=== PATIENT | female | born 1975 | race Caucasian/White ===

== ENCOUNTER 2020-02-13 14:34 | Emergency (ER) | payer OTHER, SELFPAY ==
[2020-02-13] VITALS (8 sets, daily range): BP systolic 122–130; BP diastolic 56–85; PULSE 70–101; RESP 12–19; TEMP 36.6; O2SAT 93–100
--- NOTE | ~2020-02-13 | XR_ITS ---
EXAMINATION: XR chest 1V portable DATE: 02/13/2020 17:41 INDICATION: Midsternal chest pain TECHNIQUE: frontal view of the chest was obtained. COMPARISON: None FINDINGS: Eventration along the right hemidiaphragm. No focal airspace opacities, pulmonary edema, pleural effu carmel or pneumothorax. The cardiomediastinal silhouette is normal. Visualized bones and soft tissues a re unremarkable. IMPRESSION: 1. No acute cardiopulmonary disease. Reviewed, dictated and finalized at location [facility]. [facility]
--- NOTE | 2020-02-13 15:10 | ECG_ITS ---
Measurements Intervals [place] Rate: 99 P: 24 NH: 161 QRS: 28 QRSD: 97 T: 19 QT: 315 QTc: 404 Interpretive Statements SINUS RHYTHM INCOMPLETE RIGHT BUNDLE BRANCH BLOCK BORDERLINE ECG Electronically Signed On 02-13-2020 17:24:02 ASSISTANT ART DIRECTOR by Ari Hurst D.O.
[2020-02-13 15:23] LABS: Basophils Percent Auto 0.3 % (0.2-1.2); Eosinophils Absolute Auto 0.2 K/mm3 (0-0.3); Eosinophils Percent Auto 1.5 % (0-4.4); Hematocrit 42.4 % (37.0-47.0); Hemoglobin 14.4 g/dL (12.0-15.0); Immature Granulocyte Absolute 0.05 K/mm3 (0.00-0.031); Immature Granulocyte Percent A 0.4 % (0-0.5); Lymphocytes Absolute Auto 3.11 K/mm3 (0.9-3.2); Lymphocytes Percent Auto 25.9 % (18.3-44.2); Mean Corpuscular Hemoglobin 28.2 pg (26-34); Mean Corpuscular Volume 83.1 fl (80-100); Mean Platelet Volume 10.4 fl (7.4-10.4); Monocytes Absolute Auto 0.5 K/mm3 (0.1-0.6); Monocytes Percent Auto 4.5 % (2.6-8.5); Neutrophils Absolute Auto 8.1 K/mm3 (1.3-6.7); Neutrophils Percent Auto 67.4 % (45.5-73.1); Platelet Count Result 286 k/mm3 (150-375)
[2020-02-13 15:33] LABS: Anion Gap 10 mmol/L (8-16); Blood Urea Nitrogen 15 mg/dL (7-17); Calcium 10.4 mg/dL (8.4-10.2); Carbon Dioxide 28 mmol/L (22-30); Chloride 100 mmol/L (98-107); Estimated CRCL calculation 83 ml/min; Estimated Glomerular Filt Rate 54; Glucose 111 mg/dL (65-105); Potassium 3.8 mmol/L (3.4-5.0); Sodium 138 mmol/L (137-145)
[2020-02-13 15:34] LABS: Prothrombin Time 13.4 Seconds (11.1-14.7)
[2020-02-13 15:35] LABS: Partial Thromboplastin Time 28.6 SECONDS (22.3-36.8)
[2020-02-13 15:45] LABS: Troponin I < 0.012 ng/mL (0.000-0.034)
--- NOTE | 2020-02-13 17:47 | ED.CHESTPAIN ---
HPI - Chest Pain General Chief Complaint: Chest Pain <ALANA Tamayo Last Filed: 02/13/20 18:50> Stated Complaint: Chest Pain, SOB <ALANA Tamayo Last Filed: 02/13/20 18:50> Time Seen by Provider: 02/13/20 17:28 <ALANA Tamayo Last Filed: 02/13/20 18:50> Source: patient <ALANA Tamayo Last Filed: 02/13/20 18:50> Mode of arrival: ambulatory <ALANA Tamayo Last Filed: 02/13/20 18:50> Limitations: no limitations <ALANA Tamayo Last Filed: 02/13/20 18:50> History of Present Illness HPI narrative: Patient is a 44-year-old female who presents to emergency department for evaluation of chest pain that is midsternal in nature described as a pressure aching pain that was intermittent starting yesterday around 4 PM lasted into the evening tapered down patient was able to sleep woke again in the day with same pain which is now persistent and will not go away has tried Tums and her anxiety medication with no relief denies similar occurrence in the past. Denies recent illness sick exposures contacts presents in no distress does not appear uncomfortable <ALANA Tamayo Last Filed: 02/13/20 18:50> Related Data Home Medications: Home Medications Medication Instructions Recorded Confirmed cariprazine [Vraylar] 6 mg PO DAILY 02/13/20 clonidine HCl 0.1 mg PO ONCE 02/13/20 empagliflozin [Jardiance] 25 mg PO DAILY 02/13/20 liraglutide [Victoza 3-Doroteo] 1.8 mg SUBCUT DAILY 02/13/20 lisinopril 5 mg PO DAILY 02/13/20 oxcarbazepine 300 mg PO BID 02/13/20 trazodone 150 mg PO HS PRN 02/13/20 zolpidem [Ambien] 5 mg PO HS PRN 02/13/20 <ALANA Tamayo Last Filed: 02/13/20 18:50> Allergies/Adverse Reactions: Allergies Allergy/AdvReac Type Severity Reaction Status Date / Time azithromycin Allergy Swelling Verified 02/13/20 17:52 of Lip/Tongue/Throat <Fernando Cortez PA-C - Last Filed: 02/13/20 18:50> Review of Systems Review of Systems: All systems reviewed & are unremarkable except as noted in HPI and below <Fernando Cortez PA-C - Last Filed: 02/13/20 18:50> [facility] Past Medical History Medical History: Medical History Bipolar disorder Diabetes mellitus <Fernando Cortez PA-C - Last Filed: 02/13/20 18:50> Social History Social History: Social History (Updated 02/13/20 @ 17:49 by Fernando Cortez PA-C) Smoking status: Never smoker Gender identity (if verbalized by the patient): Female <Fernando Cortez PA-C - Last Filed: 02/13/20 18:50> Exam Narrative: Exam Narrative: GENERAL: Well-appearing, obese, and in no acute distress. HEAD: Normocephalic, atraumatic. EYES: PERRLA and EOMI. ENT: Nares clear, no rhinorrhea or epistaxis. Mucous membranes moist. Oropharynx without tonsillar hypertrophy exudate or other lesions. Bilateral TMs pearly islas nonbulging NECK: Supple. No adenopathy or masses. No carotid bruits or JVD CHEST: Clear to auscultation. No respiratory distress. No wheezes rales or rhonchi. Reproducible tenderness in the mid sternum HEART: Regular rate and rhythm. No murmur heard. Normal peripheral pulses. ABDOMEN: Soft, nontender, nondistended EXTREMITIES: Normal range of motion. No edema. SKIN: Warm, dry, no rash. NEURO: No focal deficits. Alert and oriented x3. Cranial nerves II through XII grossly intact PSYCH: Normal mood and affect. <Fernando Cortez PA-C - Last Filed: 02/13/20 18:50> Course Course Emergency Course: Patient in the room aware of case findings treatment plan diagnosis agreeing to plan to follow with cardiology and primary care no high risk changes in the blood work or imaging given the duration of her symptoms it is felt coupled with her heart score that she can go home for outpatient restratification and consideration for stress test or other testing. Patient
[2020-02-13] MEDS: Please add drug allergy info to patient profile. 1 EACH XX (17:56)
[2020-02-13] MEDS: KETOROLAC (*BKC) 60 MG/2 ML VIAL IM (17:56)
[2020-02-13] MEDS: ASPIRIN 81 MG CHEWABLE TABLET 324 MG PO (17:56)
[2020-02-13 18:41] LABS: Troponin I < 0.012 ng/mL (0.000-0.034)
== END 2020-02-13 19:00 | disposition home or self-care (01) ==
PROVIDERS: Emergency Medicine; Emergency Provider General Practice; PCP Nurse Practitioner
DX: R07.9 Chest pain, unspecified (principal); F31.9 Bipolar disorder, unspecified; E11.9 Type 2 diabetes mellitus without complications; I45.10 Unspecified right bundle-branch block; Z79.84 Long term (current) use of oral hypoglycemic drugs
CPT/HCPCS: 36415; 71045; 80048; 84484; 85025; 85610; 85730; 93005; 96372; 99284; A9270; J1885

== ENCOUNTER 2020-09-18 10:06 | Emergency (ER) | payer OTHER, SELFPAY ==
--- NOTE | 2020-09-18 10:12 | ED.UPPEXIN ---
HPI - Extremity Injury (Upper) General Chief Complaint: Extremity Problem,Nontraumatic Stated Complaint: left arm shoulder down Time Seen by Provider: 09/18/20 10:12 Source: patient and RN notes reviewed History of Present Illness HPI narrative: Patient is a 45-year-old female who presents the urgent care with complaints of left arm pain that radiates to the shoulder, down to the elbow. Patient denies of any known injury. States that its been ongoing for approximately 3 weeks and exacerbates with extension of the left arm and reaching. Patient denies of any chest pain or shortness of breath. States that she has been using Aleve, Tylenol and Flexeril for the pain. Patient started Flexeril on September 12 and and is noted that she was placed on prednisone 20 mg today. Patient states she has not started the prednisone and wanted a second opinion after leaving her PCP this morning. No other acute complaints. No acute distress noted. Patient aware of the plan of care. Some parts of this dictation were generated by voice recognition software and may contain typographical and/or grammatical inaccuracies. Related Data Home Medications Medication Instructions Recorded Confirmed cariprazine [Vraylar] 6 mg PO DAILY 02/13/20 09/18/20 clonidine HCl 0.1 mg PO ONCE 02/13/20 09/18/20 empagliflozin [Jardiance] 25 mg PO DAILY 02/13/20 09/18/20 liraglutide [Victoza 3-Doroteo] 1.8 mg SUBCUT DAILY 02/13/20 09/18/20 lisinopril 5 mg PO DAILY 02/13/20 09/18/20 oxcarbazepine 300 mg PO BID 02/13/20 09/18/20 trazodone 150 mg PO HS PRN 02/13/20 09/18/20 zolpidem [Ambien] 5 mg PO HS PRN 02/13/20 09/18/20 prednisone 09/18/20 ropinirole 0.25 mg PO HS 09/18/20 09/18/20 Allergies Allergy/AdvReac Type Severity Reaction Status Date / Time azithromycin Allergy Swelling Verified 09/18/20 10:33 of Lip/Tongue/Throat Review of Systems Review of Systems: Narrative: CONSTITUTIONAL: Denies fever, chills, or sweats. EYES: Denies visual changes, redness, or discharge. ENT: Denies rhinorrhea, congestion, sore throat, or otalgia. CARDIOVASCULAR: Denies chest pain, palpitations, or edema. RESPIRATORY: Denies cough or dyspnea. GASTROINTESTINAL: Denies abdominal pain, nausea, vomiting, or diarrhea. GENITOURINARY: Denies dysuria or hematuria. SKIN: Denies rash or itching. MUSCULOSKELETAL: Reports of left shoulder pain radiating to the left elbow NEUROLOGIC: Denies headache, numbness, or weakness. All other systems reviewed are negative, except as documented in HPI. [facility] Past Medical History Medical History Bipolar disorder Diabetes mellitus Social History Social History (Updated 02/13/20 @ 17:49 by Fernando Cortez PA-C) Smoking status: Never smoker Gender identity (if verbalized by the patient): Female Comments At the time of my signature, I reviewed and agree with the nursing past medical, surgical, social, and family history. There is no relevant family history pertinent to the patient complaint. Exam Narrative: Exam Narrative: GENERAL: This is a well-nourished, well-developed patient, in no apparent distress. HEAD: normocephalic, atraumatic. EYES: PERRL. Sclera clear/white. Vision is grossly intact. EARS: External ears normal NOSE: External nose normal with no obvious nasal discharge, nares without redness, no rhinorrhea. THROAT: Mucous membranes moist, NECK: Neck supple CARDIOVASCULAR: Regular rate and rhythm without murmurs, gallops, or rubs. RESPIRATORY: Clear to auscultation. Breath sounds equal bilaterally. No wheezes, rales, or rhonchi. SKIN: warm, intact with no suspicious lesions or rash, good texture and turgor. NEURO: awake, alert, and oriented to person, place and time. There were no obvious focal neurologic abnormalities. EXTREMITIES: No ecchymosis, edema or obvious deformity or fracture noted to the left arm/shoulder. Range of motion limited due to pain with reaching and li
--- NOTE | 2020-09-18 10:13 | ECG_ITS ---
Measurements Intervals [place] Rate: 92 P: 35 TN: 166 QRS: 47 QRSD: 102 T: 35 QT: 331 QTc: 411 Interpretive Statements SINUS RHYTHM INCOMPLETE RIGHT BUNDLE BRANCH BLOCK BASELINE ARTIFACT- I, III, AVL, V1-V2 BORDERLINE ECG Electronically Signed On 09-18-2020 11:49:22 CDT by Ari Hurst D.O.
[2020-09-18 10:14] VITALS: BP 135/89; PULSE 99; RESP 20; TEMP 36.7; O2SAT 100
== END 2020-09-18 10:58 | disposition home or self-care (01) ==
PROVIDERS: Emergency Provider Nurse Practitioner Family; PCP Nurse Practitioner
DX: G89.29 Other chronic pain (principal); M25.512 Pain in left shoulder; I45.10 Unspecified right bundle-branch block
CPT/HCPCS: 93005; 99213; G0463

== ENCOUNTER 2022-01-08 13:05 | Emergency (ER) | payer OTHER, SELFPAY ==
--- NOTE | ~2022-01-08 | CT_ITS ---
EXAMINATION: CT knee LT w con INDICATION: Left popliteal skin rash TECHNIQUE: Computed tomographic images of the left knee were obtained after the administration of 100 cc of Omnipaque 350 intravenous contrast. The dose-length product (DLP) was 653.96 mGy-cm. Automated exposure control and iterative reconstruction technique were employed. COMPARISON: None FINDINGS: Bone alignment is normal. There is no fracture. There is no joint effusion. There is mild o steoarthritis of the knee. There are posterior subcutaneous soft tissue swelling in the popliteal reg ion. No abscess or large fluid collection are identified. IMPRESSION: 1. Posterior soft tissue swelling of the knee in the popliteal region without abscess or large fluid collection identified. Mild osteoarthritis. No fracture. Reviewed, dictated and finalized at location A. IMPRESSION: 1. Posterior soft tissue swelling of the knee in the popliteal region without a bscess or large fluid collection identified. Mild osteoarthritis. No fracture.
--- NOTE | ~2022-01-08 | US_ITS ---
US venous doppler LE LT DATE: 01/08/2022 15:41 INDICATION: Rash, itching and pain behind left knee TECHNIQUE: Real-time and color flow imaging and Doppler analysis of the veins of the left lower extre mity COMPARISON: None FINDINGS: Left peroneal veins are not visualized. Otherwise there is spontaneous and phasic flow and normal augmentation and color flow signal the left common femoral, femoral, popliteal and posterior t ibial veins. IMPRESSION: Left peroneal veins not visualized; otherwise no evidence of deep venous thrombosis of le ft lower extremity Reviewed, dictated and finalized at Location [facility]. Reviewed, dictated and finalized at location A. IMPRESSION: Left peroneal veins not visualized; otherwise no evidence of deep v enous thrombosis of left lower extremity
[2022-01-08 13:18] VITALS: BP 152/73; PULSE 90; RESP 18; TEMP 36.3; O2SAT 97
[2022-01-08 13:45] LABS: Basophils Percent Auto 0.3 % (0.2-1.2); Eosinophils Absolute Auto 0.3 K/mm3 (0-0.3); Eosinophils Percent Auto 3.1 % (0-4.4); Hematocrit 44.9 % (37.0-47.0); Hemoglobin 15.1 g/dL (12.0-15.0); Immature Granulocyte Absolute 0.06 K/mm3 (0.00-0.031); Immature Granulocyte Percent A 0.5 % (0-0.5); Lymphocytes Absolute Auto 3.09 K/mm3 (0.9-3.2); Lymphocytes Percent Auto 28.1 % (18.3-44.2); Mean Corpuscular HGB Conc 33.6 g/dl (32-36); Mean Corpuscular Hemoglobin 28.7 pg (26-34); Mean Corpuscular Volume 85.2 fl (80-100); Mean Platelet Volume 10.5 fl (7.4-10.4); Monocytes Absolute Auto 0.5 K/mm3 (0.1-0.6); Monocytes Percent Auto 4.9 % (2.6-8.5); Neutrophils Absolute Auto 6.9 K/mm3 (1.3-6.7); Neutrophils Percent Auto 63.1 % (45.5-73.1); Platelet Count Result 248 k/mm3 (150-375); Red Blood Count 5.27 M/mm3 (4.2-5.4); Red Cell Distribution Width 13.4 % (11.5-14.5)
[2022-01-08 13:57] LABS: Alanine Aminotransferase 27 U/L (6-35); Albumin Level 4.3 g/dL (3.5-5.1); Alkaline Phosphatase 114 U/L (38-126); Anion Gap 15 mmol/L (8-16); Aspartate Amino Transferase 29 U/L (14-36); Bilirubin,Total 0.4 mg/dL (0.2-1.3); Blood Urea Nitrogen 18 mg/dL (7-17); Calcium 9.1 mg/dL (8.4-10.2); Carbon Dioxide 21 mmol/L (22-30); Chloride 101 mmol/L (98-107); Estimated CRCL calculation 99 ml/min; Estimated Glomerular Filt Rate > 60; Glucose 150 mg/dL (65-110); Potassium 3.7 mmol/L (3.4-5.0); Sodium 137 mmol/L (137-145)
--- NOTE | 2022-01-08 14:50 | ED.WOUNDLAC ---
HPI - Wound/Laceration General Chief Complaint: Wound/Laceration Stated Complaint: bite behind left knee Time Seen by Provider: 01/08/22 14:41 History of Present Illness HPI narrative: Patient is a 46-year-old female here for evaluation of a patch of erythema to her left popliteal region that developed about 4 days ago. Patient denies obvious trigger for the rash with no new medications, soaps detergents or foods. States that the rash is very pruritic, has been taking Benadryl and has not been helping her symptoms. Presents today because the central area of the rash started to turn dark purple and became painful. Denies history of previous similar sensation. No fevers, chills, nausea or vomiting, patient states that she does feel tired but has been taking Benadryl [id number]. Related Data Home Medications Medication Instructions Recorded Confirmed cariprazine 6 mg capsule (Vraylar) 6 mg PO DAILY 02/13/20 09/18/20 clonidine HCl 0.1 mg tablet 0.1 mg PO ONCE 02/13/20 09/18/20 empagliflozin 25 mg tablet 25 mg PO DAILY 02/13/20 09/18/20 (Jardiance) liraglutide 0.6 mg/0.1 mL (18 mg/3 1.8 mg subcut DAILY 02/13/20 09/18/20 mL) subcutaneous pen injector (Victoza 3-Doroteo) lisinopril 2.5 mg tablet 5 mg PO DAILY 02/13/20 09/18/20 oxcarbazepine 300 mg tablet 300 mg PO BID 02/13/20 09/18/20 trazodone 150 mg tablet 150 mg PO HS PRN Sleep 02/13/20 09/18/20 zolpidem 5 mg tablet (Ambien) 5 mg PO HS PRN Sleep 02/13/20 09/18/20 prednisone 20 mg tablet 09/18/20 ropinirole 0.25 mg tablet 0.25 mg PO HS 09/18/20 09/18/20 Allergies Allergy/AdvReac Type Severity Reaction Status Date / Time azithromycin Allergy Swelling Verified 06/11/21 13:32 of Lip/Tongue/Throat doxycycline Allergy Swelling Verified 01/08/22 16:39 of Lip/Tongue/Throat Review of Systems Review of Systems: Gen.: Denies fevers or chills Eyes: Denies eye pain or visual change ENT: Denies congestion Respiratory: Denies shortness of breath or cough CV: Denies chest pain or palpitations GI: Denies abdominal pain nausea, emesis or diarrhea denies burning, urgency, frequency or hematuria Musculoskeletal: Denies back pain or muscle pain Neuro: Denies numbness, tingling, weakness or focal weakness Skin: Reports rash to the left lower extremity Except as documented, all other systems reviewed and negative PMFSH Past Medical History Medical History Bipolar disorder Diabetes mellitus Social History Social History (System 06/11/21 @ 13:32 by Edie Nam) Smoking status: Never smoker Gender identity (if verbalized by the patient): Female Exam Narrative: APPEARANCE: Well appearing, no pain in distress, well-nourished. Head: Normocephalic and atraumatic. EYES: PERRLA/EOMI, conjunctivae clear NOSE: No nasal drainage EARS: External ear normal in appearance THROAT: Oropharynx is clear. Mucous membranes are moist. NECK: Supple. No adenopathy, no masses. RESPIRATORY: Airway patent, respirations nonlabored. Clear to auscultation bilaterally, no rales, rhonchi, wheezing. CARDIOVASCULAR: Strong DP and PT pulses bilaterally. Regular rate and rhythm without murmurs, rubs, or gallops. ABDOMINAL: Normoactive bowel sounds. Soft, nontender, nondistended. No rebound tenderness or guarding. MUSCULOSKELETAL: Full range of motion in left lower extremity and right lower extremity. NEURO: Normal speech. No focal neurologic deficits. SKIN: Patient has a 10 cm area of raised erythema to the left popliteal region with a central darkened area that is purple in color, nontender to palpation, no underlying fluctuance or induration. PSYCHIATRIC: Normal affect/mood Course Vital Signs Vital signs: Vital Signs Temperature 97.4 F L 01/08/22 13:18 Pulse Rate 90 01/08/22 13:18 Respiratory Rate 18 01/08/22 13:18 Blood Pressure 152/73 H 01/08/22 13:18 Pulse Oximetry 97 01/08/22 13:1
[2022-01-08] MEDS: predniSONE 20 MG TABLET 60 MG PO (16:19)
[2022-01-08] MEDS: diphenhydrAMINE HCl INJ 50 MG/ML VIAL 25 MG IV PUSH (16:40)
[2022-01-08 16:54] LABS: Lactic Acid Reflex 0.9 mmol/L (0.7-2.0)
[2022-01-08 16:59] LABS: CRP 2.5 mg/dL (<1.0)
[2022-01-08 17:17] LABS: Erythrocyte Sedimentation Rate 14 mm/hr (0-20)
[2022-01-08] MEDS: SODIUM CHLORIDE 0.9% IV 1,000 ML 999 ML IV CONT (18:07)
[2022-01-08 18:08] VITALS: BP 121/77; PULSE 89; RESP 18; TEMP 36.7; O2SAT 98
[2022-01-08 19:14] VITALS: PULSE 78; RESP 16; O2SAT 97
== END 2022-01-08 19:15 | disposition home or self-care (01) ==
PROVIDERS: Emergency Medicine; Physician Assistant; Emergency Provider Emergency Medicine; PCP Nurse Practitioner
DX: L03.116 Cellulitis of left lower limb (principal); E11.9 Type 2 diabetes mellitus without complications
CPT/HCPCS: 36415; 73701; 80053; 83605; 85025; 85652; 86140; 93971; 96365; 96366; 96374; 96375; 99284; J1200; J3370; J7030; J7512; Q9967

== ENCOUNTER 2022-01-11 12:52 | Emergency (ER) | payer OTHER, SELFPAY ==
[2022-01-11 12:55] VITALS: BP 150/82; PULSE 96; RESP 18; TEMP 36.6; O2SAT 100
--- NOTE | 2022-01-11 14:15 | ED.WOUNDLAC ---
HPI - Wound/Laceration General Chief Complaint: Wound/Laceration Stated Complaint: rash Time Seen by Provider: 01/11/22 12:55 History of Present Illness HPI narrative: Patient is a 46-year-old female who presents ER with rash to her left popliteal fossa. Reports it began about a week ago. She was seen in the ER and placed on oral antibiotics as well as oral prednisone. She continued has itching and burning. The redness is decreased in intensity. The rash is not extended beyond borders that she is drawn on her leg however she does have a few punctate areas outside of it that she did not previously have. These areas also itch and burn. No fevers or chills or sweats. No lower extremity edema. Related Data Home Medications Medication Instructions Recorded Confirmed cariprazine 6 mg capsule (Vraylar) 6 mg PO DAILY 02/13/20 09/18/20 clonidine HCl 0.1 mg tablet 0.1 mg PO ONCE 02/13/20 09/18/20 empagliflozin 25 mg tablet 25 mg PO DAILY 02/13/20 09/18/20 (Jardiance) liraglutide 0.6 mg/0.1 mL (18 mg/3 1.8 mg subcut DAILY 02/13/20 09/18/20 mL) subcutaneous pen injector (Victoza 3-Doroteo) lisinopril 2.5 mg tablet 5 mg PO DAILY 02/13/20 09/18/20 oxcarbazepine 300 mg tablet 300 mg PO BID 02/13/20 09/18/20 trazodone 150 mg tablet 150 mg PO HS PRN Sleep 02/13/20 09/18/20 zolpidem 5 mg tablet (Ambien) 5 mg PO HS PRN Sleep 02/13/20 09/18/20 prednisone 20 mg tablet 09/18/20 ropinirole 0.25 mg tablet 0.25 mg PO HS 09/18/20 09/18/20 Allergies Allergy/AdvReac Type Severity Reaction Status Date / Time azithromycin Allergy Swelling Verified 06/11/21 13:32 of Lip/Tongue/Throat doxycycline Allergy Swelling Verified 01/08/22 16:39 of Lip/Tongue/Throat Review of Systems Review of Systems: All systems reviewed & are unremarkable except as noted in HPI and below Constitutional: Constitutional: Denies chills and Denies fever(s) Cardiovascular: Cardiovascular: Denies chest pain and Denies rapid heart rate Respiratory: Respiratory: Denies cough and Denies dyspnea Integumentary/Breasts: Skin/Breast: Reports pruritus, Reports erythema, Reports rash and Denies skin ulcer PMFSH Past Medical History Medical History (Updated 01/11/22 @ 14:19 by Peter Henriquez MD) Bipolar disorder Diabetes mellitus Social History Social History (System 06/11/21 @ 13:32 by Edie Nam) Smoking status: Never smoker Gender identity (if verbalized by the patient): Female Exam Narrative: GENERAL: Well-appearing, well-nourished, and in no acute distress. HEAD: Normocephalic, atraumatic. EXTREMITIES: Normal range of motion. No edema. SKIN: Warm, dry. Red rash left popliteal fossa that is thickened. There is central clearing that was not previously noted. Outside of the circled area patient also has some punctate spots the medial calf there is a cluster that appears to be vesicular with clear fluid that drains. No pustules. NEURO: Alert and oriented x3. PSYCH: Normal mood and affect. Course Course Emergency Course: Patient with a very atypical rash. She can continue her prednisone antibiotics but there is a component of it that does look vesicular over the medial calf. 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 Rash does seem to be improving as it is not extended up beyond the markings that she put on it 2 days ago. It is no longer fiery red. Vital Signs Vital signs: Vital Signs Temperature 97.9 F 01/11/22 12:55 Pulse Rate 96 01/11/22 12:55 Respiratory Rate 18 01/11/22 12:55 Blood Pressure 150/82 H 01/11/22 12:55 Pulse Oximetry 100 01/11/22 12:55 Oxygen Delivery Room Air 01/11/22 12:55 Temperature 97.9 F 01/11/22 12:55 Pulse Rate 78 01/11/22 14:31 Respiratory Rate 18 01/11/22 14:31 Blood Pressure 138/82 01/11/22 14:31 Pulse Oximetry 99 01/11/22 14:31 Oxygen Delivery Room Air 01/11/22 12:55
[2022-01-11 14:31] VITALS: BP 138/82; PULSE 78; RESP 18; O2SAT 99
== END 2022-01-11 14:32 | disposition home or self-care (01) ==
PROVIDERS: Emergency Provider Emergency Medicine; PCP Nurse Practitioner
DX: B02.9 Zoster without complications (principal); F31.9 Bipolar disorder, unspecified; E11.9 Type 2 diabetes mellitus without complications; Z79.84 Long term (current) use of oral hypoglycemic drugs
CPT/HCPCS: 99283